=== PATIENT | female | born 1990 | race African-American/Black ===

== ENCOUNTER 2016-06-30 20:12 | Emergency (ER) | payer OTHER ==
[~2016-06-30] VITALS: Ht 170.2 cm; Wt 118.0 kg
[~2016-06-30 20:12] MED LIST: CYCL5TAB PO; IBUP800T23 PO
[2016-06-30 20:14] VITALS: BP 167/111; PULSE 98; RESP 14; TEMP 98.2; O2SAT 98
[2016-06-30 20:43] VITALS: BP 175/97
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
[2016-06-30] MEDS ORDERED: ACETAMINOPHEN/HYDROcodone 325 MG/5 MG TAB PO ONE (21:30)
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
[2016-06-30] MEDS ORDERED: DICL75TA PO (21:59)
[2016-06-30] MEDS ORDERED: CYCL1TAB29 PO (21:59)
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
== END 2016-06-30 22:09 | disposition home or self-care (01) ==
LOC: NETRI 20:12
DX: S16.1XXA Strain of muscle, fascia and tendon at neck level, initial encounter (principal); S39.012A Strain of muscle, fascia and tendon of lower back, initial encounter; S63.502A Unspecified sprain of left wrist, initial encounter; V49.49XA Driver injured in collision with other motor vehicles in traffic accident, initial encounter; Y92.410 Unspecified street and highway as the place of occurrence of the external cause; Z72.0 Tobacco use; V43.52XA Car driver injured in collision with other type car in traffic accident, initial encounter
CPT/HCPCS: 72040; 72100; 73110; 99284; L3908

== ENCOUNTER 2016-09-26 10:10 | Emergency (ER) | payer OTHER ==
[~2016-09-26] VITALS: Ht 170.2 cm; Wt 110.0 kg
[~2016-09-26 10:10] MED LIST changes: +CYCL1TAB29 PO; +DICL75TA PO
[2016-09-26 10:12] VITALS: BP 144/81; PULSE 104; RESP 16; TEMP 99.4; O2SAT 98
--- NOTE | 2016-09-26 11:11 | PD ---
HPI Chief Complaint: ENT Complaint Time Seen by Provider: 10:55 Travel History International Travel<30 days: No Contact w/Intl Traveler<30days: No Traveled to known affect area: No History of Present Illness HPI 25-year-old female who presents for evaluation of sore throat. Symptoms started 4 days ago. She has had associated fevers as high as 102 at home. She has been using Tylenol and she also used some leftover ciprofloxacin tablets that she had from a previous prescription. Her sore throat and fevers have persisted which prompted evaluation. It hurts to swallow. Denies cough or congestion, rash or recent travel. No sick contacts. Last menstrual period was early August. No other complaints. PFSH Past Medical History Hx Anticoagulant Therapy: No Cardiovascular Problems: No Chemotherapy: No Cerebrovascular Accident: No Diabetes: No Diminished Hearing: No Respiratory: No Tetanus Vaccination: Unknown Influenza Vaccination: No ?: Unknown LMP: 09-03-16 : 1 Para: 0 Miscarriage: 0 : 1 Past Surgical History Hysterectomy: No Social History Alcohol Use: Yes Tobacco Use: Yes Substance Use: No Allergies-Medications (Allergen,Severity, Reaction): Coded Allergies: No Known Allergies (Verified , 06/30/16) Reported Meds & Prescriptions Reported Meds & Active Scripts Active Amoxicillin 875 Mg Tab 875 Mg PO BID 10 Days Flexeril (Cyclobenzaprine HCl) 10 Mg Tab 10 Mg PO TID Diclofenac Sodium DR (Diclofenac Sodium) 75 Mg Tabdr 75 Mg PO BID Ibuprofen 800 Mg Tab 800 Mg PO Q8HR PRN Flexeril (Cyclobenzaprine HCl) 5 Mg Tab 5 Mg PO Q8HR PRN UNKNOWN DOSE Review of Systems Except as stated in HPI: all other systems reviewed are Neg Physical Exam Narrative GENERAL: Well-developed well-nourished female in no acute distress SKIN: Warm and dry. HEAD: Atraumatic. Normocephalic. EYES: Pupils equal and round. No scleral icterus. No injection or drainage. ENT: No nasal bleeding or discharge. Mucous membranes pink and moist. Tender erythema with exudate formation. Uvula midline with no mass effect. Voice is not hoarse or muffled, no stridor or drooling. NECK: Trachea midline. No JVD. Mild tender anterior cervical lymphadenopathy. Neck supple full range of motion. CARDIOVASCULAR: Regular rate and rhythm. No murmur appreciated. RESPIRATORY: No accessory muscle use. Clear to auscultation. Breath sounds equal bilaterally. GASTROINTESTINAL: Abdomen soft, non-tender, nondistended. MUSCULOSKELETAL: No obvious deformities. No edema. NEUROLOGICAL: Awake and alert. No obvious cranial nerve deficits. Motor grossly within normal limits. Normal speech. Data Data Last Documented VS Vital Signs Date Time Temp Pulse Resp B/P Pulse Ox O2 Delivery O2 Flow Rate FiO2 09/26/16 10:12 99.4 104 16 144/81 98 Orders Group A Rapid Strep Screen (09/26/16 10:59) Strep Culture (Group A) (09/26/16 11:05) Amoxicillin (Trimox) (09/26/16 11:45) [facility] Medical Decision Making Medical Screen Exam Complete: Yes Emergency Medical Condition: Yes Medical Record Reviewed: Yes Differential Diagnosis Exudative pharyngitis, tonsillitis, peritonsillar abscess, infectious mononucleosis, herpangina, epiglottitis, retropharyngeal abscess Narrative Course 25-year-old female with sore throat and fever for 4 days. Examination reveals exudative pharyngitis, mild tender anterior cervical lymphadenopathy. Plan is for rapid strep screen. Rapid strep screen is negative. Clinically I suspect streptococcal pharyngitis. Therefore the patient will be started on amoxicillin pending strep culture results. She is stable for discharge. She understands to return for any acutely new or worsening symptoms. Diagnosis Primary Impression: Exudative pharyngitis Departure Forms: Tests/Procedures, Work Release Enter return to work date: Sep 29, 2016 Additional Instructions: Stay well hydrated and well-nourished. Take [id number] Tylenol or ibuprofen for pain per dosing instructions on the bottle. Medication as prescribed, for [employer]. Return for any acutely new or worsening symptoms. Med/Other Pt SpecificInfo: Prescription(s) given Scripts Amoxicillin 875 Mg Vde199 Mg PO BID 10 Days Ref 0 Prov:Daya Conde MD 09/26/16 Disposition: 01 DISCHARGE HOME Condition: Stable Jermain Duckworth Sep 26, 2016 11:11
[2016-09-26] MEDS ORDERED: AMOX875T PO (11:44)
[2016-09-26] MEDS ORDERED: AMOXICILLIN 875 MG TAB PO ONE (11:45)
== END 2016-09-26 12:27 | disposition home or self-care (01) ==
LOC: NEPD 10:10
DX: J02.9 Acute pharyngitis, unspecified (principal); R59.0 Localized enlarged lymph nodes; R50.9 Fever, unspecified; Z72.0 Tobacco use
CPT/HCPCS: 87081; 87880; 99283

== ENCOUNTER 2016-10-27 11:11 | Emergency (ER) | payer OTHER ==
[~2016-10-27] VITALS: Ht 170.2 cm; Wt 115.0 kg
[~2016-10-27 11:11] MED LIST changes: +AMOX875T PO
[2016-10-27 11:13] VITALS: BP 177/109; PULSE 99; RESP 20; TEMP 98.2; O2SAT 99
[2016-10-27] MEDS ORDERED: CLOT10TR PO (12:01)
[2016-10-27] MEDS ORDERED: MAGICPED SWISH-SPIT (12:01)
--- NOTE | 2016-10-27 12:03 | PD ---
HPI Chief Complaint: ENT Complaint Time Seen by Provider: 11:58 Travel History International Travel<30 days: No Contact w/Intl Traveler<30days: No Traveled to known affect area: No History of Present Illness HPI 25-year-old female presents to emergency Department with complaint of continued sore throat. She reports being treated for strep throat about a month ago and had some improvement after taking the prescribed amoxicillin, but says her sore throat never fully went away and she has had continuous pain and swelling. Denies development of rash to her body while taking amoxicillin. Reports fever of 102.0 two days ago. Denies lump in throat, difficulty swallowing, unusual drooling. Reports painful swallowing. Denies nasal congestion, cough, ear pain. Reports feeling fatigued. Denies abdominal pain, headache, vomiting. Denies others with similar symptoms. Also reports thrush to her tongue after taking the amoxicillin. Has been taking [place] for her sore throat for symptom management. Has not taken any other medications or tried any other treatments to alleviate her symptoms. No known allergies. Has no other medical complaints. No other modifying factors or associated signs and symptoms. PFSH Past Medical History Hx Anticoagulant Therapy: No Cardiovascular Problems: No Chemotherapy: No Cerebrovascular Accident: No Diabetes: No Diminished Hearing: No Respiratory: No ?: Not LMP: 10/26/16 : 1 Para: 0 Miscarriage: 0 : 1 Past Surgical History Hysterectomy: No Social History Alcohol Use: Yes Tobacco Use: Yes Substance Use: No Allergies-Medications (Allergen,Severity, Reaction): Coded Allergies: No Known Allergies (Verified , 10/27/16) Reported Meds & Prescriptions Reported Meds & Active Scripts Active Deltasone (Prednisone) 20 Mg Tab 40 Mg PO DAILY 5 Days Magic Mouthwash Pediatric/Adult Liq (Lidocaine/Diphenhydr/Alum/Mg/Simeth) 60 Ml Susp 5 Ml SWISH-SPIT Q3HR PRN Each 5mL contains: Diphenydramine 4.5mg, Viscous Lidocaine 2% 10mg, Maalox Advanced Regular Strength 2.7ml Clotrimazole [place] (Clotrimazole) 10 Mg Troc 10 Mg PO 5 TIMES A DAY 7 Days Amoxicillin 875 Mg Tab 875 Mg PO BID 10 Days Flexeril (Cyclobenzaprine HCl) 10 Mg Tab 10 Mg PO TID Diclofenac Sodium DR (Diclofenac Sodium) 75 Mg Tabdr 75 Mg PO BID Ibuprofen 800 Mg Tab 800 Mg PO Q8HR PRN Flexeril (Cyclobenzaprine HCl) 5 Mg Tab 5 Mg PO Q8HR PRN UNKNOWN DOSE Review of Systems Except as stated in HPI: all other systems reviewed are Neg Physical Exam Narrative GENERAL: Well-nourished, well-developed female patient, in no acute distress SKIN: Warm and dry. No rash. HEAD: Atraumatic. Normocephalic. EYES: Pupils equal and round at 3 mm with brisk reaction. No scleral icterus. No injection or drainage. PERRLA. ENT: Mucosa pink and dry. Pharynx with 2+ tonsils; with erythema and edema; without exudate. No Uvular edema. No uvular, palatal, or tonsillar deviation. Airway patent. Voice is normal. EARS: Bilateral pinnae and external canals appear within normal limits. Bilateral tympanic membranes without erythema, dullness or perforation. MOUTH: Tongue coated with white film. NECK: Trachea midline. Anterior cervical lymphadenopathy and tenderness. CARDIOVASCULAR: Regular rate. RESPIRATORY: No accessory muscle use. GASTROINTESTINAL: Rounded. MUSCULOSKELETAL: No obvious deformities. No clubbing. No cyanosis. No edema. NEUROLOGICAL: Awake and alert. Oriented 3. No obvious cranial nerve deficits. Motor grossly within normal limits. Normal speech. Moves all extremities. PSYCHIATRIC: Appropriate mood and affect; insight and judgment normal. Data Data Last Documented VS Vital Signs Date Time Temp Pulse Resp B/P Pulse Ox O2 Delivery O2 Flow Rate FiO2 10/27/16 12:24 18 10/27/16 11:13 98.2 99 177/109 99 Room Air Orders Monoscreen (10/27/16 11:57) Group A Rapid Strep Screen (10/27/16 11:57) Strep Culture (Group A) (10/27/16 12:18) Labs Laboratory Tests Test 10/27/16 12:18 Monoscreen NEG MDM Medical Decision Making Medical Screen Exam Complete: Yes Emergency Medical Condition: Yes Medical Record Reviewed: Yes Differential Diagnosis [place], viral pharyngitis, strep pharyngitis, less likely peritonsillar abscess, oral thrush Narrative Course 25-year-old female physical exam consistent with oral thrush. Patient also has sore throat that has been continued for 1 month. She was seen here on September 26 and was treated for exudative pharyngitis with amoxicillin with some improvement in her symptoms, but never complete relief of the sore throat. September 26 rapid strep was negative and final strep culture was negative also. Reports fever of 102.02 days ago. Patient is afebrile and nontoxic-appearing at this time. I offered the patient a nonnarcotic for pain and she declined. Rapid strep and mono screen ordered. 1302: Rapid strep and [place] screen negative. Deltasone, Magic mouthwash, clotrimazole irving prescribed for home. Instructed patient to follow up with ENT. Instructed patient to follow up with primary care provider. Patient verbalizes understanding and agreement with treatment plan. Patient is medically cleared and stable for discharge. Discussed reasons to return to the emergency department. Patient agrees with treatment plan. The patients vital signs are stable and the patient is stable for outpatient follow-up and treatment. Patient discharged home, stable and in no acute distress. Diagnosis Primary Impression: Viral pharyngitis Additional Impression: Oral thrush Referrals: [facility] Primary Care Physician Patient Instructions: General Instructions, Pharyngitis (ED) Departure Forms: Tests/Procedures, Work Release Enter return to work date: Oct 28, 2016 Additional Instructions: Throw away and change your toothbrush 24 hours after starting antibiotics Get plenty of sleep/rest Rest your voice Drink plenty of fluids to prevent dehydration Use warm saltwater gargles to soothe throat pain Use an air humidifier/turn off ceiling fans Use throat lozenges as needed for sore throat Use ibuprofen or acetaminophen as needed to relieve pain and fever Follow-up with your primary care provider within 2-4 days Return immediately to the emergency department with worsening of symptoms Med/Other Pt SpecificInfo: Prescription(s) given Scripts Prednisone (Deltasone)20 Mg Tab40 Mg PO DAILY 5 Days Ref 0 Prov:Sharon Arceo [facility] 10/27/16 Spuhmuvvhfticnt-Tmhxkuncf-Jvo-Alum-Simeth Liq (Magic Mouthwash Pediatric/Adult Liq)60 Ml Susp5 Ml SWISH-SPIT Q3HR PRN (SORE THROAT) #60 ML Ref 0 Each 5mL contains: Diphenydramine 4.5mg, Viscous Lidocaine 2% 10mg, Maalox Advanced Regular Strength 2.7ml Prov:Sharon Arceo 10/27/16 Clotrimazole [place] 10 Mg Troc10 Mg PO 5 TIMES A DAY 7 Days Ref 0 Prov:Sharon Arceo 10/27/16 Disposition: 01 DISCHARGE HOME Condition: Stable Sharon Arceo Oct 27, 2016 12:02
[2016-10-27] MEDS ORDERED: PRED-503 PO (13:00)
== END 2016-10-27 13:10 | disposition home or self-care (01) ==
LOC: NEPK 11:11
DX: J02.8 Acute pharyngitis due to other specified organisms (principal); B97.89 Other viral agents as the cause of diseases classified elsewhere; B37.0 Candidal stomatitis; R50.9 Fever, unspecified; R53.83 Other fatigue; Z72.0 Tobacco use
CPT/HCPCS: 86308; 87081; 87880; 99284